=== PATIENT | female | born 1940 | race Caucasian/White ===

== ENCOUNTER 2017-10-23 06:12 | Inpatient (IN) | payer OTHER ==
[2017-10-17 13:49] VITALS: BMI 50.7
[2017-10-23] MEDS: oxyCODONE HCL 10 MG SUSTAINED ACTING TABLET PO STA ×2 (07:30→20:20)
[2017-10-23] MEDS ORDERED: LIDOCAINE 1%/EPI 1:100000 (20 ML MULTI DOSE VIAL) ONE (07:32)
[2017-10-23] MEDS ORDERED: THROMBIN (BOVINE) 5,000 UNIT VIAL TP ONE ×3 (07:32→10:51)
--- NOTE | 2017-10-23 08:09 | HP ---
History & Physical Update - History History: No Change - Physical Physical: No Change - Assessment Assessment: No Change - Plan Plan: No Change (Initial H&P is located in her paper chart. No new complaints or medications. Here today for elective L4/5 TLIF (lumbar radiculopathy L>R))
[2017-10-23] MEDS ORDERED: ONDANSETRON 4 MG/2 ML VIAL ONE (09:17)
[2017-10-23] MEDS ORDERED: DEXAMETHASONE SOD PHOSPHATE 4 MG/1 ML VIAL ONE (09:17)
[2017-10-23] MEDS ORDERED: ceFAZolin SODIUM 1 GM VIAL ONE (09:17)
[2017-10-23] MEDS ORDERED: LIDOCAINE 1%/EPI 1:100000 (20 ML MULTI DOSE VIAL) IJ ONE (09:24)
[2017-10-23] MEDS ORDERED: GUM MASTIC/STORAX/MSAL/ALCOHOL 1 DRP DROPSBTL MC ONE (11:22)
--- NOTE | 2017-10-23 11:43 | OP ---
Operative Note - Note: Operative Date: 10/23/17 Pre-Operative Diagnosis: Lumbar spondylolithesis (L4/5), radiculopathy Operation: L4/5 TLIF Post-Operative Diagnosis: Same as Pre-op Surgeon: Crow Jensen Head Cager: Josep Barillas Anesthesiologist/QUALITY IMPROVEMENT COORDINATOR (RN): Ines Dobbs (TLIP) Anesthesia: Spinal Estimated Blood Loss (mls): 20 Fluid Volume Replaced (mls): 700 Operative Report Dictated: Yes
--- NOTE | 2017-10-23 11:44 | SURG ---
Surgery Assistant Public Defender Note Assistant Public Defender: Josep Barillas PA-C Date of Service: 10/23/17 Diagnosis: L4/5 spondylolithesis Procedure: Transforaminal lumbar interbody fusion / instrumentation / decompression L4/5, allograft implant, neuromonitoring I was present for the entirety of the operative procedure. For further detail, please refer to operative report. Visit type - Case Type Case Type: Scheduled Admission - New patient This patient is new to me today: Yes Date on this admission: 10/23/17
[2017-10-23] MEDS ORDERED: ACETAMINOPHEN 1000 MG/100 ML VIAL (NON FORMULARY) IVPB PRN (11:48)
[2017-10-23] MEDS ORDERED: ONDANSETRON 4 MG/2 ML VIAL IVPUSH PRN ×2 (11:48→12:47)
[2017-10-23] MEDS ORDERED: oxyCODONE HCL 5 MG TABLET PO PRN ×2 (11:48→12:47)
[2017-10-23] MEDS ORDERED: ACETAMINOPHEN 1000 MG/100 ML VIAL (NON FORMULARY) IVPB ONE (11:55)
[2017-10-23] MEDS ORDERED: ONDANSETRON 4 MG/2 ML VIAL IVPUSH ONE (12:02)
[2017-10-23] MEDS ORDERED: diazePAM 2 MG TABLET ONE (12:19)
[2017-10-23] MEDS ORDERED: PROMETHAZINE HCL 25 MG/1 ML VIAL IVPUSH PRN (12:47)
[2017-10-23] MEDS ORDERED: diazePAM 2 MG TABLET PO ONE (12:48)
[2017-10-23] MEDS: oxyCODONE HCL 5 MG TABLET PO PRN ×3 (13:35→23:10)
[2017-10-23] MEDS: GABAPENTIN 300 MG CAPSULE (FP) PO SCH (13:35)
[2017-10-23] MEDS: ceFAZolin 2 GRAM PREMIX BAG IVPB SCH ×2 (13:39→20:28)
[2017-10-23] MEDS: metFORMIN HCL 500 MG TABLET (FP) PO SCH (17:03)
[2017-10-23] MEDS: ACETAMINOPHEN 325 MG TABLET (FP) PO SCH ×2 (17:05→17:23)
[2017-10-23] MEDS: GLIMEPIRIDE 4 MG TABLET (FP) PO SCH (17:23)
[2017-10-23] MEDS: diazePAM 2 MG TABLET PO SCH ×2 (20:21→21:25)
[2017-10-23] MEDS: LACTATED RINGERS SOLUTION 1,000 ML IV SCH (20:21)
[2017-10-23] MEDS: DOCUSATE SODIUM 100 MG CAPSULE (FP) PO SCH (21:25)
[2017-10-23] MEDS ORDERED: diazePAM 2 MG TABLET PO SCH (22:00)
[2017-10-23] MEDS ORDERED: GABAPENTIN 400 MG CAPSULE (FP) PO SCH (22:00)
[2017-10-23] MEDS ORDERED: ATORVASTATIN CA 20 MG TABLET (FP) PO SCH (22:00)
[2017-10-24] MEDS: ACETAMINOPHEN 325 MG TABLET (FP) PO SCH ×3 (00:14→11:50)
[2017-10-24] MEDS: oxyCODONE HCL 5 MG TABLET PO PRN ×4 (03:24→14:05)
[2017-10-24] MEDS: ceFAZolin 2 GRAM PREMIX BAG IVPB SCH (04:18)
[2017-10-24] MEDS: GABAPENTIN 300 MG CAPSULE (FP) PO SCH ×2 (05:17→14:05)
[2017-10-24] MEDS: GLIMEPIRIDE 4 MG TABLET (FP) PO SCH (06:14)
[2017-10-24] MEDS: metFORMIN HCL 500 MG TABLET (FP) PO SCH (06:14)
[2017-10-24 07:04] VITALS: BP 142/57; PULSE 104; TEMP 99.2
--- NOTE | 2017-10-24 07:56 | PN ---
Progress Note (short form) - Note Progress Note: POD #1 Per RN notes, patient barely OOB since surgery despite multiple attempts at aggressive mobilization. C/o of LLE pain (there prior too surgery) which is unchanged. She is voiding spontaneously. Denies n/v/f/c, CP or SOB Last Vital Signs Temp Pulse Resp BP Pulse Ox 99.2 F 104 H 19 142/57 96 10/24/17 07:02 10/24/17 07:02 10/24/17 07:02 10/24/17 07:02 10/24/17 07:02 Gen: alert. nad. Lungs: cta bilat Cor: rrr Neuro: GMNVI bilat Skin: dressing taken down on rounds. Steri strips intact. Mild eccymotic changes (to be expected). No drainage. New occlusive dressing applied. <Josep Barillas P - Last Filed: 10/24/17 07:57> - Note Progress Note: Patient seen and examined Agree with above D/C Planning <Crow Jensen - Last Filed: 10/26/17 14:29> Problem List - Problems (1) Spondylolisthesis at L4-L5 level Assessment/Plan: POD #1 s/p L4/5 TLIF, allograft implant, neuromonitoring Patient hasn't been OOB to ambulate the necessary requirement yet. I spoke with her a great lengths regarding the importance of mobilization. She said she cares for her bedridden at home. Said if you are unable to ambulate and care for yourself, how do you expect to care for your . We need to know that you can perform your ADLs without restriction. Will await PT evaluation to decide if patient needs to go to a rehab facility. Most likely patient will need one more day of in-patient care. Cont pain management Tight glycemic control OOB with PT (walker assist) Diabetic diet Lumbar Xray Dressing changed on rounds Code(s): M43.16 - SPONDYLOLISTHESIS, LUMBAR REGION <Josep Barillas P - Last Filed: 10/24/17 07:57>
[2017-10-24 09:00] LABS: HEMATOCRIT 31.2 % (32.4-45.2); HEMOGLOBIN 10.4 GM/dl (10.7-15.3); MCHC 33.5 g/dl (32.0-36.0); MEAN CELL VOLUME 86.5 fl (80-96); MEAN PLT VOLUME 8.2 fl (7.5-11.1); PLATELET COUNT 265 K/MM3 (134-434); RDW 13.2 % (11.6-15.6)
[2017-10-24 09:02] LABS: ANION GAP 7 (8-16); BLOOD UREA NITROGEN 16 mg/dl (7-18); CALCIUM 8.7 mg/dl (8.4-10.2); CHLORIDE 101 mmol/L (98-107); CO2 27 mmol/L (22-28); CREATININE 0.8 mg/dl (0.6-1.3); GLUCOSE,RANDOM 176 mg/dl (74-106); SODIUM 135 mmol/L (136-145)
[2017-10-24] MEDS: DOCUSATE SODIUM 100 MG CAPSULE (FP) PO SCH (09:17)
[2017-10-24] MEDS: diazePAM 2 MG TABLET PO SCH (09:17)
[2017-10-24] MEDS ORDERED: ASPIRIN 81 MG CHEWABLE TABLETS PO SCH (10:00)
[2017-10-24] MEDS ORDERED: LOSARTAN POTASSIUM 50 MG TABLET (FP) PO SCH (10:00)
[2017-10-24] MEDS ORDERED: FERROUS SO4 325 MG TABLET (FP) PO SCH (10:00)
[2017-10-24] MEDS ORDERED: PANTOPRAZOLE 20 MG TABLET (FP) PO SCH (10:00)
[2017-10-24] MEDS ORDERED: CHOLECALCIFEROL (VITAMIN D3) 1,000 UNIT TABLET (FP) PO SCH (10:00)
--- NOTE | 2017-10-24 11:38 | PN ---
Progress Note (short form) - Note Progress Note: 77F POD1 L4-5 fusion under spinal anesthetic with TLIP blocks for post operative pain relief. Pt states that pain is well controlled, and reports no anesthetic complications. AVSS. No change in gross motor or sensory exam. Continue current regimen.
[2017-10-24] MEDS: LACTATED RINGERS SOLUTION 1,000 ML IV SCH (13:30)
--- NOTE | 2017-10-24 14:55 | DS ---
Physical Exam: SUBJECTIVE: Patient seen and examined earlier this morning. Please refer to morning note. OBJECTIVE: Vital Signs Temperature 99.2 F 10/24/17 07:02 Pulse Rate 104 H 10/24/17 07:02 Respiratory Rate 19 10/24/17 09:00 Blood Pressure 142/57 10/24/17 07:02 O2 Sat by Pulse Oximetry (%) 96 10/24/17 09:00 PHYSICAL EXAM GENERAL: The patient is awake, alert, and fully oriented, in no acute distress. HEAD: Normal with no signs of trauma. EYES: PERRL, extraocular movements intact, sclera anicteric, conjunctiva clear. ENT: Ears normal, nares patent, oropharynx clear without exudates, moist mucous membranes. NECK: Trachea midline, full range of motion, supple. LUNGS: Breath sounds equal, clear to auscultation bilaterally, no wheezes, no crackles, no accessory muscle use. HEART: Regular rate and rhythm, S1, S2 without murmur, rub or gallop. ABDOMEN: Soft, nontender, nondistended, normoactive bowel sounds, no guarding, no rebound, no hepatosplenomegaly, no masses. EXTREMITIES: 2+ pulses, warm, well-perfused, no edema. NEUROLOGICAL: Cranial nerves II through XII grossly intact. Normal speech, gait not observed. PSYCH: Normal mood, normal affect. SKIN: Warm, dry, normal turgor, no rashes or lesions noted. LABS CBC,CMP WBC 10.0 K/mm3 (4.0-10.8) 10/24/17 07:40 RBC 3.60 M/mm3 (3.60-5.2) 10/24/17 07:40 Hgb 10.4 GM/dl (10.7-15.3) L 10/24/17 07:40 Hct 31.2 % (32.4-45.2) L 10/24/17 07:40 MCV 86.5 fl (80-96) 10/24/17 07:40 MCH 29.0 pg (25.7-33.7) 10/24/17 07:40 MCHC 33.5 g/dl (32.0-36.0) 10/24/17 07:40 RDW 13.2 % (11.6-15.6) 10/24/17 07:40 Plt Count 265 K/MM3 (134-434) 10/24/17 07:40 MPV 8.2 fl (7.5-11.1) 10/24/17 07:40 Sodium 135 mmol/L (136-145) L 10/24/17 07:40 Potassium 4.0 mmol/L (3.5-5.1) 10/24/17 07:40 Chloride 101 mmol/L (98-107) 10/24/17 07:40 Carbon Dioxide 27 mmol/L (22-28) 10/24/17 07:40 Anion Gap 7 (8-16) L 10/24/17 07:40 BUN 16 mg/dl (7-18) 10/24/17 07:40 Creatinine 0.8 mg/dl (0.6-1.3) 10/24/17 07:40 POC Glucometer 215 UNITS (80-120) 10/24/17 06:01 Random Glucose 176 mg/dl (74-106) H 10/24/17 07:40 Calcium 8.7 mg/dl (8.4-10.2) 10/24/17 07:40 HOSPITAL COURSE: Date of Admission:10/23/17 Date of Discharge: 10/24/17 The patient was admitted to the Med-Surg Unit after an elective repair of their L4/5 spondylolithesis. Now, s/p L4/5 TLIF. POD #0 patient non-compliant with ambulation as ordered. Narcotic and non-narcotic pain management control was achieved with an oral and IV approach. POD #1, an xray was obtained and confirmed hardware placement at L4/5, no fractures or dislocations. Informed by patient's RN that she doesn't want to walk. I spoke with her a great lengths regarding the importance of mobilization. She lives at home with her bedridden and she is the main caregiver. Informed her if she wasn't able to ambulate and provide care for herself how could she render care to her . Before we discharge her safely we need to know that she can perform her ADLs without restriction. The patient ambulated with Physical Therapy and no services were recommended upon discharge. Patient can ambulate with walker safely. Case Management consulted to establish VNS. Ligia-operative IV ABX were administered. DVT prophylaxis was achieved with SCDs. Narcotic scripts and or muscle relaxants were checked with [place] [employer] prior to escribe. The discharge instructions and an oral pain management plan were reviewed with the patient. All questions answered. Above plan discussed with Dr. Jensen and agreed. Minutes to complete discharge: 25 Visit type - Case Type Case Type: Scheduled Admission
[2017-10-24] MEDS ORDERED: GLIMEPIRIDE 2 MG TABLET (FP) PO SCH (16:30)
--- NOTE | 2017-10-31 11:35 | OP ---
DATE OF OPERATION: 10/23/2017 PREOPERATIVE DIAGNOSES: 1. Spinal stenosis at L4-5. 2. Spondylolisthesis L4-5. POSTOPERATIVE DIAGNOSES: 1. Spinal stenosis at L4-5. 2. Spondylolisthesis L4-5. PROCEDURE: 1. Transforaminal lumbar interbody fusion, L4-5. 2. Placement of instrumentation. 3. Placement of prosthetic cage. SURGEON: Crow Jesnen MD TRANSFORMER BUILDER: FARRAH Drake ESTIMATED BLOOD LOSS: 100 mL INTRAVENOUS FLUIDS: Per Anesthesia. ANESTHESIA: Spinal/TLIP. COMPLICATIONS: None. DISPOSITION: Patient brought to the PACU in stable condition. INDICATION FOR SURGERY: The patient is a 77-year-old female who has been suffering from pain from her back down her legs. X-rays and MRI were completed which noted that she had spinal stenosis at L4-5 secondary to a spondylolisthesis. She had gone through an exhaustive course of treatment for this which included medications, physical therapy, as well as injections. Unfortunately, her pain continued to persist despite all this. At this point, risks, benefits, and alternatives were discussed, and the patient consented to surgery. DESCRIPTION OF PROCEDURE: Patient was brought to the operating room by the anesthesia staff. After appropriate patient identification was performed, spinal anesthesia was given. TLIP block was given. Patient was able to position herself prone onto the OR table. The C-arm was brought in. The L4 and L5 pedicles were marked off. Next, 10 mL of lidocaine with epinephrine were injected into her back at this time. Her back was prepped and draped in sterile manner. At this point, timeout was completed, and incisions were made bilaterally over the L4 and L5 pedicles. Dissection was carried down to the fascia. Fascia was then split open at this time, and appropriate retractors were then placed in. Under C-arm guidance, trocars were advanced into both the L4 and L5 pedicles. Under C-arm guidance, wires were inserted through the trocars. Tap was performed and screws inserted. On the left-hand side, retractor blades were set up to expose the L4-5 facet joint. The facet joint was removed. Using a series of pituitaries, Kerrisons, and curettes, a diskectomy was completed. Endplates were decorticated at this time. Bone graft was laid down. A cage filled with bone graft was placed in. Screw heads were placed over the screws. A kya was measured and placed in. Caps were placed on. Final tightening was performed. On the right-hand side, a kya was measured and placed in. Caps were placed on. Final tightening was performed. All extra instrumentation was removed at this time. AP and lateral x-rays confirmed the instrumentation to be in good position. The fascia was closed with a No. 1 Vicryl suture. Subcutaneous tissue was closed with 2-0 Vicryl suture. Skin was closed with 3-0 Monocryl suture. Dermabond was applied. Steri-Strips were applied. A sterile dressing was applied. Patient was placed supine on the OR bed, brought to the PACU in stable condition. Radha [id number] MTDD
== END 2017-10-24 14:56 | disposition home or self-care (01) | DRG 460 ==
LOC: FM/S 06:12
PROVIDERS: ADMIT Orthopaedic Surgery Orthopaedic Surgery of the Spine; ATTEND Orthopaedic Surgery Orthopaedic Surgery of the Spine
PROC: 0SG00AJ Fusion of Lumbar Vertebral Joint with Interbody Fusion Device, Posterior Approach, Anterior Column, Open Approach (ICD-10-PCS; principal; 2017-10-23 09:41)
DX: M48.061 Spinal stenosis, lumbar region without neurogenic claudication (principal); M43.16 Spondylolisthesis, lumbar region; M54.16 Radiculopathy, lumbar region
CPT/HCPCS: 36415; 72100-TC-FY; 76001-TC-FY; 80048; 82962; 85027; 94760; 97116-GP; 97161-GP; J0131